=== PATIENT | female | born 1990 | race Caucasian/White ===

== ENCOUNTER 2017-08-11 04:00 | Inpatient (IN) | payer OTHER ==
[2017-08-11] MEDS ORDERED: STADOL IV PRN (05:40)
[2017-08-11] MEDS ORDERED: BRETHINE IVP PRN (05:40)
[2017-08-11] MEDS ORDERED: MINERAL OIL PO PRN (05:40)
[2017-08-11] MEDS ORDERED: ePHEDrine SULFATE IV PRN (05:40)
[2017-08-11] MEDS ORDERED: XYLOCAINE 2% INFILTRATI ONE ×2 (05:40→10:50)
[2017-08-11] MEDS ORDERED: BRETHINE SUB-Q PRN (05:40)
--- NOTE | 2017-08-11 05:56 | History and Physical Report ---
History of Present Illness Date of examination: 08/11/17 Date of admission: 08/11/17 04:01 Chief complaint: Leaking fluid, contractions History of present illness: 26yo G 2 P 1 0 0 1 at 39 weeks 1 day by US here with c/o leaking clear fluid since 02:50 and mild contractions [id number]. She reports positive movements but denies vaginal bleeding. Positive nitrazine test in triage. She has been receiving care at [facility] [place]. Her course has been unremarkable. Past History Past Medical History: other (gestational diabetes diet-controlled during her last ) Past Surgical History: no surgical history Family/Genetic History: hypertension, other (chronic renal disease) Social history: , lives with family - Obstetrical History Expected Date of Delivery: 08/17/17 Actual Gestation: 39 Week(s) 1 Day(s) : 2 Para: 1 Hx # Term Pregnancies: 1 Number of Pregnancies: 0 Spontaneous Abortions: 0 Induced : 0 Number of Living Children: 1 #1 Infant Gender: Female year: 2017 Birthweight: 2.722 kg (6 lbs) Method of Delivery: Vaginal Gestational age at delivery: 39 Complications: none Medications and Allergies Allergies Allergy/AdvReac Type Severity Reaction Status Date / Time No Known Allergies Allergy Verified 05/21/15 07:58 Home Medications Medication Instructions Recorded Confirmed Last Taken Type No Known Home Medications [No 05/22/15 05/22/15 Unknown History Reported Home Medications] Review of Systems All systems: negative - Vital Signs Vital signs: Vital Signs Temp Resp 97.9 F 18 08/11/17 04:17 08/11/17 04:17 Temp Pulse Resp BP Pulse Ox 97.9 F 69 18 118/72 99 08/11/17 04:17 08/11/17 05:18 08/11/17 04:17 08/11/17 05:18 08/11/17 04:55 - Physical Exam Cardiovascular: Regular rate, Normal S1, Normal S2, No murmurs Lungs: Positive: Clear to auscultation, Normal air movement Abdomen: Positive: normal appearance, soft Genitourinary (Female): Positive: normal external genitalia, normal perenium Vulva: both: normal Vagina: Positive: normal moisture Uterus: Positive: normal size, normal contour Anus/Rectum: Positive: normal perianal skin Extremities: Positive: normal Deep Tendon Reflex Grade: Normal +2 - Obstetrical FHR: category 1 FHR comments: baseline 140, moderate variability, + accels, early decels Uterine Contraction Monitor Mode: External Cervical Dilatation: 4 (per RN) Cervical Effacement Percentage: 60 (per RN) station: -3 Uterine Contraction Frequency (min): 5-7 Uterine Contraction Pattern: Regular Results All other labs normal. Assessment and Plan - Patient Problems (1) SROM (spontaneous rupture of membranes) Current Visit: Yes Status: Acute Plan to address problem: Admit to L&D with routine labor orders Start Oxytocin for labor augmentation IV sedation and/or epidural anesthesia for labor pain management Anticipate vaginal delivery (2) Active labor at term Current Visit: Yes Status: Acute (3) 39 weeks gestation of Current Visit: Yes Status: Acute
[2017-08-11] MEDS ORDERED: LACTATED RINGERS 1,000 ML IV SCH (06:00)
[2017-08-11] MEDS ORDERED: SUBLIMAZE IV PRN (06:00)
[2017-08-11] MEDS ORDERED: PITOCin/NS 20 UNIT/1000ML DRIP 20 UNITS/1,000 ML BAG IV SCH (06:00)
[2017-08-11] MEDS ORDERED: PITOCin/NS 30 UNIT/500ML 30 UNITS/500 ML BAG IV SCH (06:00)
[2017-08-11 07:04] LABS: Hematocrit 33.4 % (30.3-42.9); Hemoglobin 11.2 gm/dl (10.1-14.3); Mean Corpuscular HGB Conc 34 % (30-34); Mean Corpuscular Hemoglobin 29 pg (28-32); Mean Corpuscular Volume 87 fl (79-97); Platelet Count 170 K/mm3 (140-440); Red Blood Count 3.86 M/mm3 (3.65-5.03); Red Cell Distribution Width 14.5 % (13.2-15.2)
--- NOTE | 2017-08-11 11:12 | Procedure Note ---
OB Delivery Note - Delivery Date of Delivery: 08/11/17 Surgeon: MERYL MOSES Estimated blood loss: 200cc - Vaginal Delivery presentation: vertex Delivery position: OA Intrapartum events: none Delivery induction: none Delivery augmentation: pitocin Delivery monitor: external FHT, external uterine Route of delivery: Delivery placenta: spontaneous Delivery cord: nuchal cord, 3 umbilical vessels Episiotomy: none Delivery laceration: 1st degree Delivery repair: vicryl Anesthesia: local Delivery comments: of a live 7'8 male over a 1st degree perineal laceration with Apgars of 7 and 9 at 1046 on 08/11/2017. Nuchal cord x 1 easily manually reduced on the perineum with delivery of the body. directly to maternal abd/chest, skin to skin contact. Spontaneous delivery of placenta complete and intact with Horowitz side presenting at 1050. Fundus is firm and midline; Lochia is scant. Perineal laceration repaired with 2-[address]- 1 under local 2% Lidocaine. Delayed cord clamping and cutting; Cord cut by the patient. - A at 1 minute: 7 at 5 minutes: 9 Gender: Male (7'8)
[2017-08-11] MEDS ORDERED: BENADRYL PO PRN (12:00)
[2017-08-11] MEDS ORDERED: NORCO 5/325 PO PRN (12:00)
[2017-08-11] MEDS ORDERED: DULCOLAX PR PRN (12:00)
[2017-08-11] MEDS ORDERED: SODIUM CHLORIDE FLUSH SYRINGE 10 ML IV PRN (12:00)
[2017-08-11] MEDS ORDERED: LANSINOH TP PRN (12:00)
[2017-08-11] MEDS: MOTRIN PO SCH ×2 (14:18→23:57)
[2017-08-11 22:55] LABS: Hematocrit 32.8 % (30.3-42.9); Hemoglobin 11.1 gm/dl (10.1-14.3)
[2017-08-12] MEDS: MOTRIN PO SCH ×2 (05:50→12:29)
--- NOTE | 2017-08-12 09:19 | Progress Note ---
Assessment and Plan - Patient Problems (1) (normal spontaneous vaginal delivery) Current Visit: Yes Status: Acute Plan to address problem: PPD 1 - stable Continue routine PP orders Discharge to home later today F/U at [facility] in 6 weeks for PP exam Schedule appt with Mental Health Consultant for checkup alexis Subjective - Subjective Date of service: 08/12/17 Principal diagnosis: Normal Spontaneous Vaginal Delivery Interval history: 26yo G 2 P 1 0 0 1 at 39 weeks 1 day by US here with c/o leaking clear fluid since 02:50 and mild contractions [id number]. She reports positive movements but denies vaginal bleeding. Positive nitrazine test in triage. She has been receiving care at [facility]. Her course has been unremarkable. Patient reports: appetite normal, voiding normally, pain well controlled, ambulating normally : doing well, nursing well Objective - Vital Signs Latest vital signs: Vital Signs Temp Pulse Resp BP BP Pulse Ox 08/12/17 05:50 20 08/12/17 00:15 98.7 F 64 18 112/64 97 08/11/17 20:30 98.9 F 66 18 100/52 98 08/11/17 15:58 98.5 F 57 L 16 113/65 98 08/11/17 13:00 98.9 F 78 18 118/72 08/11/17 12:29 66 125/75 08/11/17 12:14 73 118/68 08/11/17 12:00 66 120/67 08/11/17 11:29 76 116/58 08/11/17 11:14 82 121/60 08/11/17 10:59 80 122/57 08/11/17 09:15 18 Intake and Output 08/11/17 08/12/17 08/12/17 23:59 07:59 15:59 Intake Total 360 120 Output Total 800 400 Balance -440 -280 Intake: Oral 360 120 Output: Urine 800 400 Void 800 400 Other: Total, Intake Amount 120 120 Total, Output Amount 800 400 # Voids Void 1 1 - Exam Cardiovascular: Present: Regular rate, Normal S1, Normal S2, No murmurs Lungs: Present: Clear to auscultation, Normal air movement Abdomen: Present: normal appearance, soft Vulva: both: laceration/episiotomy (well approximated) Uterus: Present: normal, firm, fundal height at umbilicus Extremities: Present: normal Deep Tendon Reflex Grade: Normal +2
--- NOTE | 2017-08-12 09:19 | Discharge Summary ---
Providers - Providers Date of Admission: 08/11/17 04:01 Date of discharge: 08/12/17 Attending physician: JONO GILLIS MD Primary care physician: JONO GILLIS MD Hospitalization Reason for admission: active labor, rupture of membranes, IUP at term Delivery: Episiotomy: none Laceration: 1st degree (perineal) Other procedures: none complications: none Discharge diagnosis: IUP at term delivered [place] baby: male Hospital course: Uncomplicated Condition at discharge: Stable Disposition: DC-01 TO HOME OR SELFCARE - Discharge Diagnoses (1) (normal spontaneous vaginal delivery) Status: Acute Plan - Provider Discharge Summary Activity: routine, no sex for 6 weeks, no heavy lifting 4 weeks, no strenuous exercise Diet: routine Instructions: routine Additional instructions: [] Smoking cessation referral if applicable(refer to patient education folder for contact #) [] Refer to [facility] Booklet Call your doctor immediately for: * Fever > 100.5 * Heavy vaginal bleeding ( >1 pad per hour) * Severe persistent headache * Shortness of breath * Reddened, hot, painful area to leg or breast * Drainage or odor from incision. * Keep incision clean and dry at all times and follow doctor's instructions regarding bathing/showering - Follow up plan Follow up: JONO GILLIS MD [Primary Care Provider] - 6 Weeks (F/U at [facility] in 6 weeks for PP exam Schedule appt with Ac[facility]atic [facility]cer for checkup alexis)
[2017-08-12] MEDS ORDERED: PRENATAL VITAMIN PO SCH (10:00)
[2017-08-12] MEDS ORDERED: Fluarix Quad 2017-2018(36 MOS+ IM ONE (12:00)
[2017-08-12 19:11] VITALS: BP 113/65
== END 2017-08-12 19:50 | disposition home or self-care (01) | DRG 775 ==
LOC: TRG 04:00 → LD 04:01 → OB 13:03
PROVIDERS: ADMIT Obstetrics & Gynecology; ATTEND Obstetrics & Gynecology
PROC: 10E0XZZ Delivery of Products of Conception, External Approach (ICD-10-PCS; principal; 2017-08-11)
PROC: 0HQ9XZZ Repair Perineum Skin, External Approach (ICD-10-PCS; 2017-08-11)
PROC: 3E0234Z Introduction of Serum, Toxoid and Vaccine into Muscle, Percutaneous Approach (ICD-10-PCS; 2017-08-11)
DX: O69.1XX0 Labor and delivery complicated by cord around neck, with compression, not applicable or unspecified (principal); O70.0 First degree perineal laceration during delivery; Z3A.39 39 weeks gestation of pregnancy; Z37.0 Single live birth; Z23 Encounter for immunization
CPT/HCPCS: 36415; 85014; 85018; 85027; 86592; 86850; 86900; 86901; 90471; 90686; 99211; A6250; G0008; G0463; J2590; J3010; J7120

== ENCOUNTER 2019-02-23 04:15 | Inpatient (IN) | payer SELFPAY ==
[2019-02-23] MEDS ORDERED: PITOCin/NS 20 UNIT/1000ML DRIP 20,000 MILLIUNITS/1,000 ML BAG IV ONE (06:45)
[2019-02-23] MEDS ORDERED: PITOCin/NS 20 UNIT/1000ML DRIP 20 UNITS/1,000 ML BAG IV SCH (07:00)
--- NOTE | 2019-02-23 07:56 | Procedure Note ---
OB Delivery Note - Delivery Date of Delivery: 02/23/19 (07:32) Surgeon: PIO MCCULLOUGH (AYLEEN) Estimated blood loss: 100cc - Vaginal Delivery presentation: vertex Delivery position: OA Intrapartum events: none Delivery induction: none Delivery augmentation: rupture of membranes Delivery monitor: external FHT, external uterine Route of delivery: (07:32) Delivery placenta: spontaneous (07:36) Delivery cord: 3 umbilical vessels Delivery laceration: 1st degree (small, well approximated with good hemostasis. Left unrepaired.) Anesthesia: none Delivery comments: viable female , JAVIER position at 07:32. Vigorous infant placed [id number] on mothers abdomen. Strong lusty cry. Delayed cord clamping, then cut by patient with my guidance. Spontaneous mary delivery of intact placenta at 07:36. 3VC. Small first degree perineal laceration, approximates well. left unrepaired. FF@U, small lochia, no clots. and mother left in stable condi tion in L&D. EBL 100ml. GBS Negative - A at 1 minute: 9 at 5 minutes: 9 Gender: Female (6lbs 6oz, 2881 grams, 18")
[2019-02-23] MEDS ORDERED: SODIUM CHLORIDE FLUSH SYRINGE 10 ML IV PRN (08:00)
[2019-02-23] MEDS ORDERED: NORCO 5/325 PO PRN (08:00)
[2019-02-23] MEDS ORDERED: ZOFRAN IV PRN (08:00)
[2019-02-23] MEDS ORDERED: TUCKS PAD TP PRN (08:00)
[2019-02-23] MEDS ORDERED: LACTATED RINGERS 1,000 ML IV SCH (08:00)
[2019-02-23] MEDS ORDERED: LANSINOH TP PRN (08:00)
[2019-02-23] MEDS ORDERED: TYLENOL PO PRN (08:00)
[2019-02-23] MEDS ORDERED: BENADRYL PO PRN (08:00)
[2019-02-23] MEDS ORDERED: PHENERGAN PO PRN (08:00)
--- NOTE | 2019-02-23 08:01 | History and Physical Report ---
History of Present Illness Date of examination: 02/23/19 Date of admission: 02/23/19 05:51 Chief complaint: Intense labor pains History of present illness: 28 yo Fe , LEVI 03/06/19 (LMP) 38w3d presents in active labor. Received care with Azucena Juares. GDM diet controlled. 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 denies: smoking, alcohol abuse, prescription drug abuse, IV drug use - Obstetrical History Expected Date of Delivery: 03/06/19 Actual Gestation: 38 Week(s) 3 Day(s) : 3 Para: 2 Hx # Term Pregnancies: 2 Number of Pregnancies: 0 Spontaneous Abortions: 0 Induced : 0 Number of Living Children: 2 Medications and Allergies Allergies Allergy/AdvReac Type Severity Reaction Status Date / Time No Known Allergies Allergy Verified 05/21/15 07:58 Home Medications Medication Instructions Recorded Confirmed Last Taken Type No Known Home Medications [No 05/22/15 05/22/15 Unknown History Reported Home Medications] Active Meds: Active Medications Acetaminophen (Tylenol) 650 mg PO Q4H PRN PRN Reason: Pain MILD(1-3)/Fever >100.5/MAHAJAN Acetaminophen/Hydrocodone Bitart ([place] 5/325) 2 each PO Q6H PRN PRN Reason: Pain, Moderate (4-6) Bisacodyl (Dulcolax) 10 mg DE BID PRN PRN Reason: Constipation Diphenhydramine HCl (Benadryl) 25 mg PO Q6H PRN PRN Reason: Itching Oxytocin/Sodium Chloride (Pitocin/Ns 20 Unit/1000ml Drip) 20 units in 1,000 mls @ 125 mls/hr IV DIRECT RAPHAEL Lactated Ringer's (Lactated Ringers) 1,000 mls @ 125 mls/hr IV DIRECT RAPHAEL Ibuprofen (Ibuprofen) 600 mg PO Q6H RAPHAEL Magnesium Hydroxide (Milk Of Magnesia) 30 ml PO HS PRN PRN Reason: Constipation Multi-Ingredient Ointment (Lansinoh) 1 applic TP PRN PRN PRN Reason: Sore Nipples Ondansetron HCl (Zofran) 4 mg IV Q8H PRN PRN Reason: Nausea And Vomiting Promethazine HCl (Phenergan) 25 mg PO Q6H PRN PRN Reason: Nausea And Vomiting Sodium Chloride (Sodium Chloride Flush Syringe 10 Ml) 10 ml IV PRN PRN PRN Reason: flush Witch Joanie/Glycerin (Tucks Pad) 1 each TP PRN PRN PRN Reason: Hemorrhoid/cleansing/soothing Review of Systems Eyes: normal appearance Cardiovascular: no chest pain, no shortness of breath Respiratory: no shortness of breath Breasts: normal Gastrointestinal: no nausea, no vomiting, no diarrhea, no constipation Genitourinary: normal appearance, pelvic pain, contractions, no vaginal bleeding, no leakage of fluid, no dysuria, no genital sores Integumentary: no rash, no sores, no lesions - Vital Signs Vital signs: Vital Signs Temp Pulse Resp BP Pulse Ox 98.0 F 88 16 133/77 97 02/23/19 05:03 02/23/19 05:03 02/23/19 05:03 02/23/19 05:03 02/23/19 05:03 Temp Pulse Resp BP Pulse Ox 98.0 F 74 16 107/55 90 02/23/19 05:03 02/23/19 07:53 02/23/19 05:03 02/23/19 07:53 02/23/19 07:33 - Physical Exam Breasts: Positive: normal Cardiovascular: Regular rate, Normal S1, Normal S2, No murmurs Lungs: Positive: Clear to auscultation, Normal air movement Abdomen: Positive: normal appearance, soft, normal bowel sounds. Negative: distention Vulva: both: normal Vagina: Positive: normal moisture Uterus: Positive: enlarged (Enlarged) Anus/Rectum: Positive: normal perianal skin Extremities: Positive: normal Deep Tendon Reflex Grade: Normal +2 - Obstetrical FHR: category 1 Uterine Contraction Monitor Mode: External Cervical Dilatation: 7 (On Admission) Cervical Effacement Percentage: 80 station: -1 Uterine Contraction Frequency (min): 2-4 Uterine Contraction Duration: 60-120 Uterine Contraction Pattern: Regular Uterine Tone Measurement Phase: Resting Uterine Contraction Intensity: Strong/Firm Results All other labs normal. Assessment and Plan A: Term IUP at 38w3d Active labor Category 1 tracing GBS Negative GDM; diet controlled P: Admit to L&D, Routine labor orders anticiapte Accucheck
[2019-02-23] MEDS: IBUPROFEN PO SCH ×4 (08:19→23:21)
[2019-02-23] MEDS ORDERED: DULCOLAX PR PRN (10:00)
[2019-02-23 10:01] LABS: Hematocrit 35.7 % (30.3-42.9); Hemoglobin 11.8 gm/dl (10.1-14.3)
[2019-02-23] MEDS ORDERED: MILK OF MAGNESIA PO PRN (22:00)
[2019-02-24] MEDS: IBUPROFEN PO SCH ×4 (05:11→23:24)
--- NOTE | 2019-02-24 11:37 | Progress Note ---
Assessment and Plan A: day 1 S/P spontaneous vaginal delivery. P: Continue current management. Anticipate discharge home tomorrow. Subjective - Subjective Date of service: 02/24/19 Principal diagnosis: day 1 S/P Interval history: day 1 S/P spontaneous vaginal delivery. Doing well. Reports small amount of lochia. Voiding without difficulty. Ambulating well. Tolerating a regular diet. Patient denies headache, cough, chest pain, shortness of breath, abdominal pain, leg pain, swelling, or heavy bleeding. Patient reports: appetite normal, voiding normally, pain well controlled, flatus, ambulating normally, no dizzy ambulation, no nauseated : doing well Objective - Vital Signs Latest vital signs: Vital Signs Temp Pulse Resp BP BP Pulse Ox 02/24/19 08:16 98.6 F 63 18 112/61 99 02/24/19 01:47 98.3 F 70 18 109/58 100 02/24/19 00:58 75 98 02/23/19 17:31 98.4 F 67 18 127/69 97 Intake and Output 02/23/19 02/24/19 02/24/19 23:59 07:59 15:59 Intake Total 1200 240 Balance 1200 240 Intake: Oral 480 Intake, Free Water 720 240 Other: Total, Intake Amount 480 # Voids Void 3 1 - Exam Cardiovascular: Present: Regular rate, Normal S1, Normal S2, No murmurs Lungs: Present: Clear to auscultation Abdomen: Present: normal appearance, soft. Absent: distention, tenderness, guarding, rigidity Uterus: Present: normal, firm, fundal height below umbilicus. Absent: bogginess, tenderness Extremities: Present: normal. Absent: tenderness, edema
[2019-02-25] MEDS: IBUPROFEN PO SCH (05:14)
--- NOTE | 2019-02-25 10:25 | Progress Note ---
Assessment and Plan A: day 2 S/P spontaneous vaginal delivery. P: Discharge patient home today. Discussed with patient in detail discharge instructions and warning signs. Advised patient to continue taking her vitamins and iron supplements at home. Advised patient to avoid intercourse, lifting and heavy housework and driving. Advised patient to make an appointment and follow up at the [facility] in 6 weeks. Patient voiced understanding of all instructions. Subjective - Subjective Date of service: 02/25/19 Principal diagnosis: day 2 S/P Interval history: day 2 S/P spontaneous vaginal delivery. Doing well. Reports small amount of lochia. Voiding without difficulty. Ambulating well. Tolerating a regular diet. Passing gas. Patient denies headache, cough, chest pain, shortness of breath, abdominal pain, leg pain, swelling, nausea or vomiting, or heavy bleeding. Patient reports: appetite normal, voiding normally, pain well controlled, flatus, ambulating normally, no dizzy ambulation, no nauseated : doing well Objective - Vital Signs Latest vital signs: Vital Signs Temp Pulse Resp BP Pulse Ox 02/25/19 07:51 98.4 F 61 18 113/69 98 02/25/19 01:06 98.1 F 68 20 121/75 97 02/24/19 17:11 98.5 F 68 18 119/67 99 Intake and Output 02/24/19 02/25/19 02/25/19 23:59 07:59 15:59 Intake Total 1680 360 Balance 1680 360 Intake: Oral 840 360 Intake, Free Water 840 Other: Total, Intake Amount 240 120 # Voids Void 1 1 - Exam Cardiovascular: Present: Regular rate, Normal S1, Normal S2 Lungs: Present: Clear to auscultation Abdomen: Present: normal appearance, soft, normal bowel sounds. Absent: distention, tenderness, guarding, rigidity Uterus: Present: normal, firm, fundal height below umbilicus. Absent: bogginess, tenderness Extremities: Present: normal. Absent: tenderness, edema
--- NOTE | 2019-02-25 10:33 | Discharge Summary ---
Providers - Providers Date of Admission: 02/23/19 05:51 Date of discharge: 02/25/19 Attending physician: JONO GILLIS MD None Primary care physician: JONO GILLIS MD Hospitalization Reason for admission: active labor Delivery: Episiotomy: none Laceration: 1st degree Other procedures: none complications: none Discharge diagnosis: IUP at term delivered [place] baby: female Pertinent studies: Labs Hospital course: Normal hospital course. Condition at discharge: Good Disposition: DC-01 TO HOME OR SELFCARE - Discharge Diagnoses (1) Term delivered Status: Acute Plan - Provider Discharge Summary Activity: routine, no sex for 6 weeks, no heavy lifting 4 weeks, no strenuous exercise Diet: routine Instructions: routine Additional instructions: Continue taking your vitamins and iron supplements at home. Call your doctor immediately for: * Fever > 100.5 * Heavy vaginal bleeding ( >1 pad per hour) * Severe persistent headache * Shortness of breath * Reddened, hot, painful area to leg or breast - Follow up plan Follow up: JONO GILLIS MD [Primary Care Provider] - 6 Weeks
[2019-02-25 14:18] VITALS: BP 125/75
== END 2019-02-25 15:23 | disposition home or self-care (01) | DRG 807 ==
LOC: TRG 04:15 → LD 05:51 → OB 09:35
PROVIDERS: ADMIT Obstetrics & Gynecology; ATTEND Obstetrics & Gynecology
PROC: 10E0XZZ Delivery of Products of Conception, External Approach (ICD-10-PCS; principal; 2019-02-23)
PROC: 0HQ9XZZ Repair Perineum Skin, External Approach (ICD-10-PCS; 2019-02-23)
DX: O24.420 Gestational diabetes mellitus in childbirth, diet controlled (principal); Z37.0 Single live birth; O70.0 First degree perineal laceration during delivery; Z3A.38 38 weeks gestation of pregnancy; Z82.49 Family history of ischemic heart disease and other diseases of the circulatory system
CPT/HCPCS: 36415; 85014; 85018; 86592; 86850; 86900; 86901; G0378; J2590